=== PATIENT | male | born 1965 ===

== ENCOUNTER → 2018-07-14 19:19 | Outpatient (REF) | payer SELFPAY ==
[2018-07-14 20:15] LABS: Add Manual Diff / Slide Review NO; Basophils Absolute Auto 0 /uL (0-100); Basophils Percent Auto 0.8 % (0-2); Eosinophils Absolute Auto 200 /uL (0-450); Eosinophils Percent Auto 3.5 % (2-4); Hematocrit 47.8 % (41-53); Hemoglobin 16.2 g/dL (13.5-17.5); Lymphocytes Absolute Auto 1600 /uL (1100-4500); Lymphocytes Percent Auto 28.8 % (25-40); Mean Corpuscular Hemoglobin 30.9 PG (26-34); Mean Corpuscular Volume 90.8 fL (80-100); Monocytes Absolute Auto 500 /uL (0-900); Monocytes Percent Auto 8.7 % (3-14); Neutrophils Absolute Auto 3200 /uL (1500-7000); Neutrophils Percent Auto 58.2 % (50-75); Platelet Count 299 X10^3/uL (150-400); Red Blood Cell Count 5.26 X10^6/uL (4.5-5.9); Red Cell Distribution Width 14.1 % (11.6-14.8); White Blood Cell Count 5.5 X10^3/uL (4.5-11.0)
[2018-07-14 20:39] LABS: Hemoglobin A1C% w Est Avg Glu 5.3 % (4.0-6.0)
[2018-07-14 20:51] LABS: Monotest Negative (Negative)
[2018-07-14 23:06] LABS: Alanine Aminotransferase 45 IU/L (21-72); Albumin 4.7 g/dL (3.5-5.0); Albumin Globulin Ratio 1.8 (1.0-2.8); Alkaline Phosphatase 73 U/L (38-126); Aspartate Aminotransferase 26 IU/L (17-59); Bilirubin Total 1.2 mg/dL (0.2-1.3); Blood Urea Nitrogen 20 mg/dL (9-20); Calcium 9.7 mg/dL (8.4-10.2); Carbon Dioxide 25 mmol/L (22-32); Chloride 105 mmol/L (98-107); Cholesterol 228 mg/dL (140-199); Estimated Glomerular Filt Rate > 60.0 mL/min (>60); Globulin 2.6 g/dL (1.7-4.1); Glucose 92 mg/dL (70-100); HDL Cholesterol 39 mg/dL (40-60); HEMOLYSIS < 15 (0-50); LDL Cholesterol Calculated 123 mg/dL (<100); Potassium 4.8 mmol/L (3.4-5.1); Sodium 140 mmol/L (137-145); Total Protein 7.3 g/dL (6.3-8.2); Triglycerides 328 mg/dL (35-150)
[2018-07-15 05:15] LABS: Folate 5.6 ng/mL (2.76-20.0); Vitamin B12 465 pg/mL (239-931)
[2018-07-17 13:23] LABS: EBV EBNA Antibody IgG > 600.00 U/mL (< 18.00)
== END ==
LOC: LAB 19:19
PROVIDERS: Visit Provider Nurse Practitioner Acute Care
DX: R53.81 Other malaise (principal); G89.29 Other chronic pain; E66.3 Overweight; R61 Generalized hyperhidrosis; R73.01 Impaired fasting glucose; I10 Essential (primary) hypertension; R53.1 Weakness
CPT/HCPCS: 80053; 80061; 82607; 82746; 83036; 85025; 86318; 86663; 86664; 86665; 86787